=== PATIENT | male | born 1960 | race Caucasian/White ===

== ENCOUNTER 2016-07-23 19:19 | Emergency (ER) | payer BC ==
[~2016-07-23 19:19] MED LIST: AUG875 PO; LEVOTHYROXIN; NORCO1 TA1 PO; PR25 PO; ZYRTEC
== END 2016-07-23 20:50 | disposition home or self-care (01) ==
LOC: ER 19:19
DX: M25.551 Pain in right hip (principal); E03.9 Hypothyroidism, unspecified; Z88.1 Allergy status to other antibiotic agents; Z88.8 Allergy status to other drugs, medicaments and biological substances
CPT/HCPCS: 73502-RT; 96372; 99283; J1170